=== PATIENT | female | born 2000 | race Caucasian/White ===

== ENCOUNTER → 2025-04-12 11:05 | Outpatient (BNVA) | payer MEDICAID, SELFPAY | PROVIDERS: Family Provider Family Medicine; PCP Family Medicine; Visit Provider Nurse Practitioner Women's Health | DX: Z34.90 Encounter for supervision of normal pregnancy, unspecified, unspecified trimester (principal); N91.2 Amenorrhea, unspecified | CPT/HCPCS: 76801; 80307; 81025; 84443; 85025; 86592; 86762; 86803; 86850; 86900; 87086; 87340; 87491; 87591; 87661; 87806 ==

== ENCOUNTER 2025-10-18 19:25 | Outpatient (CLI) | payer MEDICAID, SELFPAY ==
[2025-10-18] VITALS (10 sets, daily range): BP systolic 102–114; BP diastolic 57–68; PULSE 108–124; RESP 18; TEMP 37.2–37.7; O2SAT 97–99; BMI 37.3
[2025-10-18 20:35] LABS: Glucose Urine UA Negative (Normal); Nitrate Urine Negative (Negative); Specific Gravity, Urine 1.008 (1.005-1.030)
[2025-10-18 20:37] LABS: Add Urine Microscopic? YES
== END 2025-10-18 20:58 | disposition home or self-care (01) ==
LOC: OPOB 19:28 → OBGYN 20:51
PROVIDERS: Family Provider Family Medicine; PCP Family Medicine; Visit Provider Family Medicine
DX: O13.9 Gestational [pregnancy-induced] hypertension without significant proteinuria, unspecified trimester (principal); Z3A.00 Weeks of gestation of pregnancy not specified; R50.9 Fever, unspecified; M54.50 Low back pain, unspecified
CPT/HCPCS: 59025; 81001; 99211